=== PATIENT | female | born 1950 | race Caucasian/White ===

== ENCOUNTER 2016-05-30 08:21 | Emergency (ER) | payer OTHER, MEDICAID ==
[~2016-05-30] VITALS: Ht 162.6 cm; Wt 72.6 kg
[2016-05-30 08:21] VITALS: BP 141/106; PULSE 82; RESP 18; TEMP 97.9; O2SAT 100
--- NOTE | 2016-05-30 08:21 | NUR ---
BROUGHT BACK TO BED #7 AND TRIAGED. REPORT GIVEN TO MELL
--- NOTE | 2016-05-30 08:49 | NUR ---
ASSUMED CARE OF PATIENT INTRODUCED SELF.
--- NOTE | 2016-05-30 08:55 | NUR ---
ACTIVELY VOMITING, MD RENNER AT BEDSIDE.
[2016-05-30] MEDS ORDERED: DIPHENHYDRAMINE INJ 50 MG/ML VIAL IVP ONE (09:00)
[2016-05-30] MEDS ORDERED: PROCHLORPERAZINE EDISYLATE 10 MG/2 ML VIAL IVP ONE ×2 (09:00→12:15)
[2016-05-30] MEDS ORDERED: NACL 0.9% 1,000 ML IV ONE (09:00)
[2016-05-30 09:01] LABS: BILIRUBIN,URINE NEGATIVE (NEGATIVE); CLARITY/URINE CLEAR (CLEAR); COLOR,URINE YELLOW (YELLOW); GLUCOSE,URINE NEGATIVE (NEGATIVE); KETONES,URINE 1+ (NEGATIVE); LEUKOCYTE ESTERASE ,URINE NEGATIVE (NEGATIVE); NITRITE, URINE NEGATIVE (NEGATIVE); PROTEIN URINE 1+ (NEGATIVE); UROBILINOGEN,URINE 0.2 (0.2-1.0)
[2016-05-30 09:02] LABS: BLOOD, URINE TRACE (NEGATIVE)
[2016-05-30 09:10] LABS: BACTERIA,URINE FEW /HPF (None Seen); MUCUS,URINE 1+ /LPF (None Seen); RBC,URINE 0-3 /HPF (0-3); WBC,URINE 0-3 /HPF (0-3)
[2016-05-30 09:11] LABS: CALCIUM 8.2 mg/dL (8.4-11.0); CREATININE 0.78 mg/dL (0.55-1.30); POTASSIUM 3.6 mmol/L (3.5-5.1)
[2016-05-30 09:13] LABS: HEMATOCRIT 41.7 % (36-48); MEAN CORPUSCULAR HEMOGLOBIN 29 pg (27-31); MEAN CORPUSCULAR HGB CONC 34 % (32-36); MEAN CORPUSCULAR VOLUME 86 fL (79.0-98.0); PLATELET COUNT (AUTO) 294 K/uL (130-430); RED BLOOD CELL COUNT(AUTO) 4.86 MIL/uL (4.2-6.2); RED CELL DISTRIBUTION WIDTH 12.5 % (9.0-15.0)
[2016-05-30 09:15] LABS: ALBUMIN 4.2 g/dL (3.4-4.8); TOTAL BILIRUBIN 0.4 mg/dL (0.0-1.0); WHITE BLOOD COUNT (AUTO) 21.6 K/uL (4.8-10.8)
[2016-05-30] MEDS ORDERED: PANTOPRAZOLE SODIUM 40 MG/VIAL (PROTONIX) IVP ONE (09:15)
[2016-05-30 09:56] LABS: ATYPICAL LYMPHOCYTES % 0 % (0-0); BAND % (MANUAL) 0 % (0-6); BASOPHILS % (MANUAL) 0 % (0-2); EOSINOPHILS % (MANUAL) 0 % (0-7); LYMPHOCYTES % (MANUAL) 7 % (20-46); MONOCYTES % (MANUAL) 5 % (0-11)
--- NOTE | 2016-05-30 09:58 | NUR ---
PATIENT REASSESSED RESTING COMFORTABLY IN [place]AL[place], NAD, VSS. DENIES PAIN AND OR DISCOMFORT, NO COMPLAINTS AT THIS TIME, AWAITING RE-EVAL. IV NS BOLUS INFUSING WELL NO INFILTRATION NOTED.
[2016-05-30 11:25] VITALS: BP 140/81; PULSE 66; RESP 16; TEMP 98.1
--- NOTE | 2016-05-30 11:26 | NUR ---
PT REASSESSED AWAITING U/S RESULTS, VSS, NO COMPLAINTS AT THIS TIME.
[2016-05-30] MEDS ORDERED: MAG HYDROX/AL HYDROX/SIMETH 30 ML, BELLADONNA ALKALOIDS/PHENOBARB 10 ML, LIDOCAINE VISC... PO ONE ×3 (12:15)
[2016-05-30] MEDS ORDERED: KETOROLAC TROMETHAMINE 30 MG VIAL IVP ONE (12:15)
--- NOTE | 2016-05-30 12:55 | NUR ---
PT NOT WANTING TO WAIT ANY LONGER, REQUESTING TO HAVE IV REMOVED FROM RIGHT AC. MD RENNRE MADE AWARE OF PT LEAVING. PT IS WITH FAMILY AMBULATING, STEADY GAIT NOTED.
--- NOTE | 2016-05-30 13:05 | NUR ---
Went to room to discharge patient, unable to locate patient. Patient is presumed to have eloped.
[2016-06-22 01:26] VITALS: O2SAT 100
== END 2016-05-30 13:05 | disposition left against medical advice (07) ==
LOC: SED 08:21
DX: T62.8X1A Toxic effect of other specified noxious substances eaten as food, accidental (unintentional), initial encounter (principal); R11.2 Nausea with vomiting, unspecified; R10.13 Epigastric pain; Z88.5 Allergy status to narcotic agent; Z88.6 Allergy status to analgesic agent; Y92.89 Other specified places as the place of occurrence of the external cause
CPT/HCPCS: 36415; 76700; 80053; 81000; 83690; 84484; 85007; 85027; 96361; 96374; 96375; 99285; C9113; J0780; J1200; J7030